=== PATIENT | female | born 1955 | race Caucasian/White ===

== ENCOUNTER → 2018-02-07 08:57 | Outpatient (CLI) | payer OTHER, SELFPAY ==
[2018-02-07 09:13] VITALS: BP 122/67; PULSE 93; RESP 16; TEMP 37; O2SAT 98
[2018-02-07] MEDS: Acetaminophen 325 MG Tablet PO ×2 (09:31)
[2018-02-07 09:45] VITALS: BP 106/68; PULSE 78; RESP 16; TEMP 37.4; O2SAT 100
[2018-02-07 11:36] VITALS: BP 119/79; PULSE 81; TEMP 37.7
[2018-02-07 12:02] VITALS: BP 102/68; PULSE 74; RESP 16; TEMP 37.6; O2SAT 98
[2018-02-07 13:10] VITALS: BP 114/73; PULSE 79; RESP 18; TEMP 37.4; O2SAT 99
[2018-02-07 13:49] VITALS: BP 125/70; PULSE 75; RESP 16; TEMP 36.7
== END ==
PROVIDERS: Family Provider Internal Medicine; PCP Internal Medicine; Visit Provider Internal Medicine Hematology & Oncology
DX: C92.91 Myeloid leukemia, unspecified in remission (principal); D61.818 Other pancytopenia
CPT/HCPCS: 36430; 86644; 86850; 86900; 86920; 86922; J7040; P9040; A4216

== ENCOUNTER → 2018-02-10 11:28 | Outpatient (CLI) | payer OTHER, SELFPAY ==
[2018-02-10 11:35] VITALS: BP 95/79; PULSE 94; RESP 16; TEMP 36.2; O2SAT 100; BMI 25.8
[2018-02-10 12:18] VITALS: BP 93/62; PULSE 89; RESP 15; TEMP 36.6
[2018-02-10 13:07] VITALS: BP 102/66; PULSE 92; RESP 18; TEMP 36.6; O2SAT 100
== END ==
PROVIDERS: Family Provider Internal Medicine; PCP Internal Medicine; Visit Provider Internal Medicine Hematology & Oncology
DX: C92.00 Acute myeloblastic leukemia, not having achieved remission (principal)
CPT/HCPCS: 36430; 86644; 86900; 86965; J7040; P9037; A4216

== ENCOUNTER → 2018-02-14 09:20 | Outpatient (CLI) | payer OTHER, SELFPAY ==
[2018-02-14] VITALS (7 sets, daily range): BP systolic 93–118; BP diastolic 48–70; PULSE 74–90; RESP 16; TEMP 36.4–37.6; O2SAT 98–100
[2018-02-14] MEDS: Acetaminophen 325 MG Tablet 650 MG PO (09:51)
== END ==
PROVIDERS: Family Provider Internal Medicine; PCP Internal Medicine; Visit Provider Internal Medicine Hematology & Oncology
DX: Z51.89 Encounter for other specified aftercare (principal); C92.00 Acute myeloblastic leukemia, not having achieved remission; D61.818 Other pancytopenia
CPT/HCPCS: 36430; 86850; 86900; 86920; 86922; J7040; P9040; A4216

== ENCOUNTER → 2018-03-07 08:34 | Outpatient (CLI) | payer OTHER, SELFPAY ==
[2018-03-07 08:48] VITALS: BP 121/68; PULSE 88; RESP 16; TEMP 36.5; O2SAT 100; BMI 25.5
[2018-03-07] MEDS: Acetaminophen 325 MG Tablet 650 MG PO (08:51)
[2018-03-07 09:23] VITALS: BP 103/63; PULSE 86; RESP 15; TEMP 37.2; O2SAT 100
[2018-03-07 10:30] VITALS: BP 107/64; PULSE 81; RESP 16; TEMP 36.9; O2SAT 100
[2018-03-07 11:10] VITALS: BP 108/65; RESP 16; TEMP 37.1; O2SAT 100
== END ==
PROVIDERS: Family Provider Internal Medicine; PCP Internal Medicine; Visit Provider Internal Medicine Hematology & Oncology
DX: Z51.89 Encounter for other specified aftercare (principal); C92.00 Acute myeloblastic leukemia, not having achieved remission
CPT/HCPCS: 36430; 86644; 86900; 86965; J7040; P9037; A4216

== ENCOUNTER → 2018-03-10 09:53 | Outpatient (CLI) | payer OTHER, SELFPAY ==
[2018-03-10] VITALS (7 sets, daily range): BP systolic 101–130; BP diastolic 30–66; PULSE 90–99; RESP 15–18; TEMP 36.1–37.4; O2SAT 99–100; BMI 25.5
[2018-03-10] MEDS: Acetaminophen 325 MG Tablet 650 MG PO (10:22)
== END ==
LOC: MEDOUTP 09:53
PROVIDERS: Family Provider Internal Medicine; PCP Internal Medicine; Visit Provider Internal Medicine Hematology & Oncology
DX: Z51.89 Encounter for other specified aftercare (principal); C92.01 Acute myeloblastic leukemia, in remission; D61.818 Other pancytopenia
CPT/HCPCS: 36430; 36592; 86850; 86900; 86920; 86922; 87040; J7040; P9040; A4216

== ENCOUNTER 2018-03-10 16:48 | Emergency (ER) | payer OTHER, SELFPAY ==
[2018-03-10] VITALS (8 sets, daily range): BP systolic 106–160; BP diastolic 52–88; PULSE 83–95; RESP 14–20; TEMP 37.1–38.7; O2SAT 98–100; BMI 25.9
--- NOTE | 2018-03-10 17:40 | CT_ITS ---
STUDY: CT BRAIN WITHOUT CONTRAST REASON FOR EXAM: Female, 62 years old. Headache and fever postchemotherapy RADIATION DOSAGE (If Supplied By Facility): CTDIvol = ( 44.99 ) mGy, DLP = ( 779.24 ) mGycm TECHNIQUE: Transaxial CT imaging of the brain was performed without administration of intravenous contrast material. Individualized dose optimization techniques were used for this CT. COMPARISON: None. FINDINGS: Normal soft tissue structures. Normal calvarium. Normal size ventricles and extra-axial spaces for the patient's age. Mild nonspecific white matter disease. Normal basal ganglia and thalami. Normal brainstem. Normal cerebellum. There is no intracranial hemorrhage. There are no findings of an acute ischemic infarction. Normal visualized paranasal sinuses. CT/Brain/Head without Contrast IMPRESSION: Mild nonspecific white matter disease. No evidence for acute bleed or mass. MRI may be helpful for further assessment if indicated Electronically Signed: Odin Zamora MD at 19:30 EDT , Service support ,
[2018-03-10] MEDS: Acetaminophen 500 MG Tablet 1000 MG PO (18:12)
[2018-03-10] MEDS: 0.9% Normal Saline 1,000 ML 150 ML IV (18:12)
[2018-03-10 18:15] LABS: Absolute Lymphocyte Count 0.27 X10^3/ul (0.83-4.51); Lymphocyte # 0.27 X10^3/ul (4.0); Mean Corp Hgb Conc 36.4 g/gl (32-36); Mean Corpuscular Hgb 31.9 pg (27.0-32.0); Mean Corpuscular Volume 87.6 fL (81-99); Mean Platelet Vol. 10.1 fl (6.2-12.0); RBC Distribution Width CV 13.3 % (11.6-14.6); RBC Distribution Width SD 41.4 fl (35.1-43.9); Red Blood Count 2.51 M/mm3 (4.2-5.4)
[2018-03-10 18:19] LABS: Differential Indicated SCAN CRITERIA MET; POSITIVE COUNT YES; POSITIVE DIFFERENTIAL YES; POSITIVE MORPHOLOGY YES; Platelet Count 31 K/mm3 (150-450); White Blood Count 0.3 K/mm3 (4.4-11.0)
--- NOTE | 2018-03-10 18:19 | ED.RN ---
wbc 0.3 plt [address] lab. dr gaona aware
[2018-03-10 18:23] LABS: Mucous, Urine 0 SEEN /hpf (<or=2+)
[2018-03-10 18:24] LABS: Color, Urine Yellow (Yellow); Glucose, Dipstick Normal (Normal); Ketone-Dipstick Negative (Negative); Leukocyte Esterase-Dipstick Negative /ul (Negative); Nitrite-Dipstick Negative (Negative); Occult Blood-Urine 25 /ul (Negative); Protein-Dipstick 15 mg/dl (Negative); Urine Bilirubin Dipstick Negative (Negative); Urine Clarity Cloudy (Clear); Urine Urobilinogen Normal (Normal); Urine pH 6.5 (5.0 - 8.0)
[2018-03-10 18:29] LABS: AST(SGOT) 5 U/L (15-37); Alanine Aminotransfer ALT/SGPT 15 U/L (13-56); Albumin, Serum 3.5 g/dL (3.2-5.0); Alkaline Phosphatase 72 U/L (45-117); Anion Gap 8 (5-15); BUN 11 mg/dL (7-18); BUN/Creat Ratio 15.4 RATIO (10-20); Bilirubin, Direct 0.36 mg/dL (0.00-0.30); Calcium,Total 8.5 mg/dL (8.5-10.1); Chloride 102 mmol/L (98-107); Creatinine, Serum 0.72 mg/dL (0.55-1.02); EST Glomerular Filtration Rate 88 mL/min (>60); Est Glom Filt Rate - Afr Amer 107 mL/min (>60); Estimated Creatinine Clearance 82.77 ml/min; Globulin 3.3 g/dL (2.2-4.2); Glucose 106 mg/dL (74-106); Potassium 3.6 mmol/L (3.5-5.1); Protein, Total 6.8 g/dL (6.4-8.2); Sodium Level 135 mmol/L (136-145)
[2018-03-10 18:32] LABS: Squamous Epithelial Cells - UA 5-10 SEEN /hpf (5-10)
[2018-03-10 18:33] LABS: Red Blood Cells-Urine 0-5 SEEN /hpf (0-5)
[2018-03-10 18:34] LABS: White Blood Cells 0-5 SEEN /hpf (0-5)
[2018-03-10 18:35] LABS: Transitional Epithelial - Ur 0-5 SEEN /hpf (0-5)
[2018-03-10 18:36] LABS: Bacteria RARE /hpf (None Seen)
[2018-03-10 18:44] LABS: Differential Comment SCANNED
--- NOTE | 2018-03-10 21:57 | NURSING ---
YOGURT, STRING CHEESE, AND WATER GIVEN TO THE PATIENT. WE ARE AWAITING A BED AT [facility].
--- NOTE | 2018-03-10 22:44 | NURSING ---
ACCEPTED TO [facility] [id number] BED 11 REPORT
--- NOTE | 2018-03-10 22:57 | ED.DCSUM_ITS ---
- ER Visit Summary Date of Service: 03/10/18 Chief Complaint: Headache History of Present Illness: The patient is a 62 F with a history of AML. She has had headache for the past 4 days. She stated it started after exposure to the bright sunlight after getting a platelet transfusion. She states she used to get migraines from sun exposure that were similar. She did not have had a sunglasses to put on. Patient states the headache has waxed and waned over the past 4 days. She has not had significant light sensitivity since that initial onset. She did go to the infusion center today for infusion of packed red blood cells. Patient received a call from her oncologist office a [facility] and requested that the patient come to the ER for a scan of her brain. On arrival to the ER was noted the patient had a fever. She denied fever up to this point. She states her temperature was checked multiple times during her blood transfusion today. Her last chemotherapy cycle ended 1 week ago. She is currently undergoing evaluation for bone marrow transplant. Physical Examination: Blood pressure is 160/74, temperature 101.7, heart rate 95 , respiratory rate 14, pulse ox 100% on room air. Patient sitting upright in bed no acute distress. She is nontoxic appearing. Head neck examination is unremarkable. There is no meningismus. Heart is regular rate and rhythm. Lung sounds are clear. Abdomen is soft nontender. Skin examination was no rash or lesions. Neuro exam is unremarkable. Test Results: CT head shows mild nonspecific white matter disease. No acute bleed or mass. CBC was a white count of 0.3 with 100% lymphocytes. Hemoglobin is 8.0. Platelet count is 31,000. Chemistry studies grossly unremarkable. LFTs are significant for total bili of 2.3 and a direct bili 0.36. Urinalysis is unremarkable. Blood cultures and urine culture were sent. Emergency Department Course and Treatment: Patient was given Tylenol and IV fluids here. Repeat temperature is 98.6. I spoke with oncology at [facility]. They asked that we give her meropenem and transfer her to the leukemia service at [facility]. Patient has been accepted in transfer. Treatment Plan: [] Disposition: Transfer Impression: Neutropenic fever This note was generated with [employer] dictation software. It may contain incorrect words, spelling, and punctuation that were not noted in review of the chart prior to signing ED Disposition - Plan for ED Patient: Chief Complaint: Fever Referrals: Daisy Chandler MD [Primary Care Provider] -
[2018-03-13 12:41] LABS: Pathologist Review Reviewed
== END 2018-03-10 23:36 | disposition short-term general hospital (02) ==
LOC: ED 17:50
PROVIDERS: Emergency Provider Emergency Medicine; Family Provider Internal Medicine; PCP Internal Medicine
DX: R51 Headache (principal); C92.00 Acute myeloblastic leukemia, not having achieved remission; D70.9 Neutropenia, unspecified; R50.81 Fever presenting with conditions classified elsewhere; Z79.899 Other long term (current) drug therapy; Z87.891 Personal history of nicotine dependence
CPT/HCPCS: 70450; 80048; 80076; 81001; 85025; 87040; 87086; 87088; 96361; 96365; 96366; 99284; J2185; J7030; A4216

== ENCOUNTER → 2018-04-14 09:32 | Outpatient (CLI) | payer OTHER, SELFPAY ==
[2018-04-14 09:41] VITALS: BP 124/50; PULSE 92; RESP 15; TEMP 36.3; O2SAT 100; BMI 25.0
[2018-04-14] MEDS: Acetaminophen 325 MG Tablet 650 MG PO (09:55)
[2018-04-14 10:32] VITALS: BP 105/58; PULSE 88; RESP 15; TEMP 36.5; O2SAT 99
[2018-04-14 11:32] VITALS: BP 104/61; PULSE 78; RESP 15; TEMP 36.2; O2SAT 99
== END ==
PROVIDERS: Family Provider Internal Medicine; PCP Internal Medicine; Referring Provider Internal Medicine Hematology & Oncology; Visit Provider Internal Medicine Hematology & Oncology
DX: Z51.89 Encounter for other specified aftercare (principal); C92.00 Acute myeloblastic leukemia, not having achieved remission
CPT/HCPCS: 36430; 86850; 86900; 86920; 86922; J7040; P9040; A4216